=== PATIENT | male | born 1955 | race Caucasian/White ===

== ENCOUNTER 2023-02-15 13:39 | Outpatient (AMB) | payer OTHER, SELFPAY ==
--- NOTE | 2023-02-15 13:39 | MHC.OFFVIS ---
Intake Vital Signs 02/15/23 13:44 Height 6 ft 5 in Weight 362 lb BMI 42.9 BP 154/90 H Blood Pressure Location Rt brachial Position Sitting Pulse 87 Pulse Source Pulse Oximeter Pulse Oximetry (%) 97 Oxygen Delivery Method Room Air Intake Visit Reasons: PROCESSING TECHNOLOGIST VV Intake Note: Pt presents to the office today for a new patient for VV. Pt states he has bad circulation in both legs but mostly in his right leg. Pt states he has trouble walking and has bad inflammation. He states he also has discoloration of both legs. Allergies codeine Allergy (Intermediate, Verified 02/15/23 13:46) Hives HPI PROCESSING TECHNOLOGIST VV HPI Details Very pleasant morbidly obese 67-year-old gentleman presents to us for evaluation of his lower extremities. He has significantly swollen lower extremities. He was actually seen by Orthopedic surgery and requested a vascular evaluation prior to consideration of any surgical procedure. Main concern was this significantly swollen extremities. Of note he smokes about half a pack per day. He has difficulty ambulating distances. He does require the use of a cane which he reports is more for balance. In terms of venous disease complaints include swelling of lower extremities, cramping, fatigue, and heaviness of the lower extremities along with significant skin sloughing. It has been affecting there daily activities including just ambulating. It is noted more so in right leg. Also of note at the age of 16 or 17 he had right knee surgery from my football injury Patient denies any previous venous surgery or injections. Patient denies any history of DVT/ PE. Patient denies any history of phlebitis. Trial of compression includes - unable to wear They now present for vascular evaluation regarding their arterial and venous disease. [facility] Social History (Updated 02/15/23 @ 13:46 by Anjana Zayas MA) Household Members: Children Housing: House Alcohol intake: never Patient Tobacco Use Status: Current everyday Tobacco user Cigarettes Per Day: 10 Use of substances other than those prescribed or required for medical reasons: No Review of Systems Const Reports as per HPI ENT Reports no additional complaints Card Denies chest pain, Denies chest pain at rest and Denies chest pain with activity Resp Denies chest congestion and Denies cough GI Reports no additional complaints Musc Details: pain over varicosities, aching of lower extremities, swelling, cramping, heaviness and tiredness, itching Denies abnormal gait Skin/Breast Reports pruritus and Denies wounds Neuro Reports no additional complaints and Denies abnormal gait Psych Denies no additional complaints Physical Exam Vital Signs: Last Vital Signs Pulse 87 02/15/23 13:44 BP 154/90 H 02/15/23 13:44 Pulse Ox 97 02/15/23 13:44 Oxygen Delivery Method Room Air 02/15/23 13:44 BMI result Body Mass Index 42.9 Const General: cooperative, healthy appearing and comfortable Orientation/consciousness: oriented to person, oriented to place and oriented to time Neck Carotids: no bruits Chest Chest palpation & inspection: normal inspection of the chest and normal palpation of entire chest wall Resp Effort & Inspection: normal respiratory effort and able to speak in complete sentences Cardio Other: Bilateral DP signals only Rate: regular rate Heart sounds: S1 normal heart sound present and S2 normal heart sound present Peripheral pulses: Peripheral pulses 2+ throughout GI Inspection: Yes normal to inspection Skin Other: +2 edema, right more than left CEAP Classification C5 - evidence of healed ulceration Ep - Etiology Primary As - superficial veins P - reflux General skin exam: dry skin Neuro General: oriented to person, oriented to place and oriented to time Extrem Right lower extremity: full ROM, normal capillary refill and edema Left lower extremity: full ROM, normal capillary refill and edema Psych Mental Status: mental status grossly normal Assessment & Plan Assessment & Plan (1) PAD (peripheral artery disease): Code(s): I73.9 - Peripheral vascular disease, unspecified Plan: The patient does demonstrate evidence of peripheral vascular disease. He does have a smoking history. I am unable to get a true idea of his walking distance as he does require a cane due to his knee. I have taken the liberty of ordering noninvasive arterial testing to better evaluate this. He will follow up with us after testing. (2) Varicose veins of right lower extremity with inflammation: Code(s): I83.11 - Varicose veins of right lower extremity with inflammation Plan: The patient does have significantly edematous lower extremities. I have taken the liberty of ordering venous insufficiency testing to rule that out. There also may be an element of lymphedema on the right leg as he did have a knee injury as a child. We did discuss routine conservative measures including compression, elevation, and exercise. Unfortunately I do not think he will be able to wear compression stockings due to his overall size. Once again we did order venous insufficiency testing and he will follow up with us after testing. Thank you for allowing us to assist in his care. If there are any questions or concerns please do not hesitate to contact us. Plan The patient had an opportunity to ask questions regarding the treatment plan. All questions were answered. Imaging studies, laboratory studies and physical exam results were discussed and reviewed in detail. No major barriers to understanding were identified. The patient expressed understanding and agreement with the above treatment plan. The patient is aware they should contact our office by phone for worsening of the current condition or the appearance of new symptoms. Thank you for allowing me to participate in the vascular care of this patient. If you have any questions or concerns regarding the treatment for the above condition please do not hesitate to contact me. The office telephone contact is [phone]. This note is constructed using voice recognition software. While every effort has been made to ensure accuracy, nurse's assistant errors may have been included. Thank you for allowing me to participate in the care of your patient. Yours sincerely, Triston Kaur MD, FACS, R.P.V.I. Orders: Orders US arterial duplex LE BI 1 Week I73.9 - Peripheral vascular disease, unspecified US venous duplex LE BI 1 Week I83.11 - Varicose veins of right lower extremity with inflammation Coding Level of Care Code New Pt Level 4 (92195) Diagnoses PAD (peripheral artery disease) I73.9 Varicose veins of right lower extremity with inflammation I83.11
[2023-02-15 13:44] VITALS: BP 154/90; PULSE 87; O2SAT 97; BMI 42.9
== END 2023-02-15 14:09 | disposition home or self-care (01) ==
PROVIDERS: PCP Hospitalist; Visit Provider Surgery Vascular Surgery
DX: I73.9 Peripheral vascular disease, unspecified (principal); I83.11 Varicose veins of right lower extremity with inflammation
CPT/HCPCS: 99203

== ENCOUNTER → 2023-02-15 13:39 | Outpatient (BNVA) | payer OTHER, SELFPAY | PROVIDERS: PCP Hospitalist; Visit Provider Surgery Vascular Surgery | DX: I73.9 Peripheral vascular disease, unspecified (principal); I83.11 Varicose veins of right lower extremity with inflammation | CPT/HCPCS: 99202 ==

== ENCOUNTER 2023-03-11 12:58 | Outpatient (REF) | payer OTHER, SELFPAY ==
--- NOTE | ~2023-03-11 | US_ITS ---
EXAMINATION: US LOWER EXTREMITY VENOUS (REFLUX EXAM), BILATERAL CLINICAL INDICATION: Chronic venous insufficiency with lower extremity varicose veins and inflammation COMPARISON: None. TECHNIQUE: Color flow triplex imaging and compression Doppler was performed to evaluate both the deep and the superficial systems bilaterally. To evaluate the superficial system, the examination was performed in the upright position. Color-flow Doppler ultrasound and compression ultrasound were utilized. In addition, maneuvers were utilized to demonstrate reflux. FINDINGS: 1. DEEP VENOUS ULTRASOUND OF THE RIGHT LOWER EXTREMITY: Common Femoral Vein: Compressible, normal respiratory variation and augmented flow. Femoral Vein: Compressible, normal color flow and augmentation. Popliteal Vein: Compressible, normal augmentation. Deep Reflux: There is reflux seen in the mid superficial femoral vein and popliteal vein ranging from 1720 ms to 1884 ms There is no evidence of a Sampson's cyst. Enlarged lymph node in the right groin measuring 3.8 x 1.3 x 4.6 cm 2. SUPERFICIAL ULTRASOUND WITH DOPPLER OF RIGHT LOWER EXTREMITY: GREAT SAPHENOUS VEIN: Saphenofemoral Junction: 0.9 cm; Reflux: 0 ms Proximal Thigh: 0.4 cm; Reflux: 0 ms Mid Thigh: 0.6 cm; Reflux: 0 ms Above Knee: 0.6 cm; Reflux: 2272 ms At Knee: 0.6 cm; Reflux: 1472 ms Below Knee: 0.5 cm; Reflux: 2372 ms Mid Calf: 0.4 cm; Reflux: 0 ms Ankle: 0.4 cm; Reflux: 1732 ms DUPLICATED MEDIAL GREAT SAPHENOUS VEIN: Diameter: 0.3 cm Reflux: None DUPLICATED LATERAL GREAT SAPHENOUS VEIN: Diameter: 0.4 cm Reflux: None SMALL SAPHENOUS VEIN: Saphenopopliteal Junction: 0.3 cm; Reflux: 0 ms Proximal: 0.3 cm; Reflux: 0 ms Distal: 0.4 cm; Reflux: 0 ms VEIN OF GIACOMINI: Size: NA Reflux: NA PERFORATORS: Location: Mid calf Size: 0.5 cm Reflux: 1680 ms VARICOSITIES: Location: Lateral right thigh off the lateral accessory saphenous vein Size: 0.4 cm Reflux: None VARICOSITIES: Location: Proximal thigh, distal thigh, knee, proximal calf, mid calf and distal calf off the great saphenous vein Size: Ranging from 0.3 to 0.5 cm Reflux: 1432 ms in the proximal thigh, 1796 ms in the proximal calf, 1504 ms in the distal calf 3. DEEP VENOUS ULTRASOUND OF THE LEFT LOWER EXTREMITY: Common Femoral Vein: Compressible, normal respiratory variation and augmented flow. Femoral Vein: Compressible, normal color flow and augmentation. Popliteal Vein: Compressible, normal augmentation. Deep Reflux: There is no evidence of reflux in the deep system in either the common femoral vein, superficial femoral or the popliteal vein. There is no evidence of a Sampson's cyst. Large lymph node in the left groin measuring 4.1 x 4.8 x 1.0 cm 4. SUPERFICIAL ULTRASOUND WITH DOPPLER OF LEFT LOWER EXTREMITY: GREAT SAPHENOUS VEIN: Saphenofemoral Junction: 0.7 cm; Reflux: 0 ms Proximal Thigh: 0.5 cm; Reflux: 0 ms Mid Thigh: 0.5 cm; Reflux: 2712 ms Above Knee: 0.4 cm; Reflux: 0 ms At Knee: 0.4 cm; Reflux: 0 ms Below Knee: 0.3 cm; Reflux: 2400 ms Mid Calf: 0.4 cm; Reflux: 2652 ms Ankle: 0.4 cm; Reflux: 0 ms DUPLICATED MEDIAL GREAT SAPHENOUS VEIN: Diameter: None imaged Reflux: NA DUPLICATED LATERAL GREAT SAPHENOUS VEIN: Diameter: None imaged Reflux: NA SMALL SAPHENOUS VEIN: Saphenopopliteal Junction: 0.4 cm; Reflux: 0 ms Proximal: 0.3 cm; Reflux: 0 ms Distal: 0.2 cm; Reflux: 1264 ms VEIN OF GIACOMINI: Size: NA Reflux: NA PERFORATORS: Location: Proximal calf, mid calf and distal calf Size: 0.2 to 0.3 cm Reflux: Ranging from 0 ms to 2228 ms VARICOSITIES: Location: Proximal thigh, mid thigh, knee, proximal calf and mid calf. Size: Ranging from 0.3 to 0.5 cm Reflux: Ranging from 1684 ms to 3228 ms US/US venous duplex LE BI IMPRESSION: Right: Segmental areas of reflux in the great saphenous vein as described above. There are multiple branching varicose veins in the thigh and calf with reflux as described above note made of deep venous reflux in the superficial femoral vein and popliteal vein Left: Segmental areas of reflux in the great saphenous vein as described above. Extensive varicose veins throughout the thigh, knee and calf with severe reflux as described above
== END 2023-03-11 12:59 | disposition home or self-care (01) ==
LOC: HO.US 12:58
PROVIDERS: PCP Hospitalist; Visit Provider Surgery Vascular Surgery
DX: I83.11 Varicose veins of right lower extremity with inflammation (principal)
CPT/HCPCS: 93970

== ENCOUNTER 2023-04-13 14:11 | Outpatient (REF) | payer OTHER, SELFPAY ==
--- NOTE | ~2023-04-13 | US_ITS ---
EXAMINATION: NONINVASIVE ASSESSMENT OF THE ARTERIES OF BOTH LOWER EXTREMITIES WITH PVR EXAM AND BILATERAL LOWER EXTREMITY DUPLEX Cata Gupta MD CLINICAL INFORMATION: Peripheral vascular disease TECHNIQUE: Ankle pulse volume recordings, ankle pressure measurements and ankle brachial indices were obtained of the lower extremity arterial system bilaterally in addition to duplex Doppler techniques with wave form analysis and measurement of velocities in the common femoral, profunda femoral, superficial femoral, popliteal and tibial arteries. The study was performed only at rest. COMPARISON: None FINDINGS: a) AT REST: RIGHT LE. The right ankle-brachial index is: 0.54 * >0.97-1.25 = normal - no significant arterial disease * 0.75-0.96 = mild peripheral arterial disease * 0.5-0.74 = moderate peripheral arterial disease * <0.50 = severe peripheral arterial disease 2. Right ankle pressure: Abnormal 3. Right ankle PVR waveform: Abnormal 4. Right direct duplex Doppler findings: Common femoral artery: 183 cm/s, monophasic Profunda femoris artery: 175 cm/s, monophasic Superficial femoral artery (proximal): 175 cm/s, monophasic Superficial femoral artery (mid): 106 cm/s, monophasic Superficial femoral artery (distal): 67 cm/s, monophasic Proximal Popliteal artery: 45 cm/s, monophasic Mid posterior tibial artery: 38 cm/s, monophasic Prominent right inguinal lymph node. LEFT LE. The left ankle-brachial index is: 0.53 * >0.97-1.25 = normal - no significant arterial disease * 0.75-0.96 = mild peripheral arterial disease * 0.5-0.74 = moderate peripheral arterial disease * <0.50 = severe peripheral arterial disease 2. Left ankle pressure: Abnormal 3. Left ankle PVR waveform: Abnormal 4. Left direct duplex Doppler findings: Common femoral artery: 127 cm/s, Multiphasic Profunda femoris artery: 168 cm/s, Multiphasic Superficial femoral artery (proximal): 103 cm/s, monophasic Superficial femoral artery (mid): 24 cm/s, monophasic Superficial femoral artery (distal): 126 cm/s, monophasic Proximal Popliteal artery: 27 cm/s, monophasic Mid posterior tibial artery: 33 cm/s, monophasic US/US arterial duplex LE BI IMPRESSION: RIGHT LEG: Moderate peripheral arterial disease by MARCUS. Atherosclerotic disease and monophasic flow throughout the right lower extremity. LEFT LE. Severe stenosis of the mid superficial femoral artery with monophasic flow distally. 2. Moderate peripheral arterial disease by MARCUS..
== END 2023-04-13 14:12 | disposition home or self-care (01) ==
LOC: HO.US 14:11
PROVIDERS: PCP Hospitalist; Visit Provider Surgery Vascular Surgery
DX: I73.9 Peripheral vascular disease, unspecified (principal)
CPT/HCPCS: 93923; 93925

== ENCOUNTER 2023-05-03 11:39 | Outpatient (AMB) | payer OTHER, SELFPAY ==
--- NOTE | 2023-05-03 11:46 | MHC.OFFVIS ---
Intake Vital Signs 05/03/23 11:48 Height 6 ft 5 in Weight 362 lb BMI 42.9 Intake Visit Reasons: Art US F/U 04/13/23 Intake Note: Patient presents follow up arterial ultrasound performed on 04/13. Patient states his left leg cramps in the lower thigh/behind knee area. Allergies codeine Allergy (Intermediate, Verified 05/03/23 11:51) Hives HPI Art US F/U 04/13/23 HPI Details Very pleasant 67-year-old gentleman presents for follow-up evaluation regarding lower extremity pain. He does have some varicose veins but he has difficulty ambulating. He does require the use of a cane for balance. In addition she he does have orthopedic issues including knee and hip pain. He is in need of a knee replacement. He is undergone noninvasive arterial testing and now presents for follow-up evaluation. [facility] Social History (Updated 02/15/23 @ 13:46 by Anjana Zayas MA) Household Members: Children Housing: House Alcohol intake: never Patient Tobacco Use Status: Current everyday Tobacco user Cigarettes Per Day: 10 Review of Systems Const All systems reviewed & are unremarkable except as noted in HPI and below Reports no additional complaints ENT Reports Normal hearing present Card Denies chest pain, Denies chest pain at rest, Denies chest pain with activity and Denies pedal edema Resp Denies cough GI Denies abdominal pain Musc Denies abnormal gait, Denies muscle cramps and Denies radiating pain into limb Skin/Breast Denies skin ulcer and Denies wounds Neuro Reports Normal hearing present and Denies abnormal gait Psych Reports no additional complaints Physical Exam Vital Signs: BMI result Body Mass Index 42.9 Const General: cooperative, healthy appearing and comfortable Orientation/consciousness: oriented to person, oriented to place and oriented to time HEENT Head: Yes normal to inspection Neck Neck: Yes normal visual inspection Carotids: no bruits Chest Chest palpation & inspection: normal inspection of the chest Resp Effort & Inspection: normal respiratory effort and able to speak in complete sentences Auscultation: clear to auscultation bilaterally, no crackles, no rales, no rhonchi and no wheezes Cardio Other: Bilateral DP signals Rate: regular rate Rhythm: regular rhythm Heart sounds: S1 normal heart sound present and S2 normal heart sound present Bruits: no carotid bruits Peripheral pulses: Peripheral pulses 2+ throughout GI Inspection: Yes normal to inspection Skin Wounds: no wounds Hair: normal Neuro General: oriented to person, oriented to place and oriented to time Cranial nerves: Yes CN's II-XII intact bilaterally and Yes Normal hearing present Cognition (Neuro): normal cognition Motor exam (neuro): 5/5 motor strength present throughout Extrem Other: venous exam: No significant superficial varicosities or spider telangiectasias, minimal edema General: No clubbing, No cyanosis and No edema Psych Appearance: grossly normal Mental Status: mental status grossly normal Speech and movement: Normal speech and movement present Results Reviewed Results Reviewed: Noninvasive arterial testing dated 04/13/2023 demonstrates MARCUS on the right of 0.54 and on the left of 0.53. There is concern of severe stenosis in the mid SFA. Written report and images were reviewed. Assessment & Plan Assessment & Plan (1) PAD (peripheral artery disease): Code(s): I73.9 - Peripheral vascular disease, unspecified Plan: Patient notes leg pain when walking distances. I have discussed the pathophysiology of peripheral vascular disease with the patient. I have also discussed risk factor modification. I have reviewed the patient's arterial testing which reveals right MARCUS of 0.54. the patient would benefit from a right leg endovascular peripheral angiogram with possible angioplasty, stent, and/or atherectomy. This has been discussed in detail with the patient along with risks, benefits, and complications. This includes but is not limited to bleeding, infection, heart attack, need for emergent surgical repair, limb ischemia, blood vessel damage, bleeding, puncture, kidney injury, bruising, allergic reaction, and skin reaction. The patient demonstrates a clear understanding. We will schedule for the next appropriate time. Thank you for allowing us to assist in this patient's care. Coding Level of Care Code Est Pt Level 4 (86763) Diagnoses PAD (peripheral artery disease) I73.9
[2023-05-03 11:48] VITALS: BMI 42.9
== END 2023-05-03 12:13 | disposition home or self-care (01) ==
PROVIDERS: PCP Hospitalist; Visit Provider Surgery Vascular Surgery
DX: I73.9 Peripheral vascular disease, unspecified (principal)
CPT/HCPCS: 99214

== ENCOUNTER → 2023-05-03 11:39 | Outpatient (BNVA) | payer OTHER, SELFPAY | PROVIDERS: PCP Hospitalist; Visit Provider Surgery Vascular Surgery | DX: I73.9 Peripheral vascular disease, unspecified (principal) | CPT/HCPCS: 99212 ==